=== PATIENT | female | born 1960 | race Caucasian/White ===

== ENCOUNTER 2018-05-26 11:15 | Outpatient (CLI) | payer BC ==
--- NOTE | 2018-05-26 13:49 | RAD ---
SUPINE ABDOMEN: INDICATIONS: Left lower quadrant pain. FINDINGS: There is scattered stool and gas throughout the colon. Scattered small bowel gas appears unremarkabl e. Prominent stool is noted throughout the colon and could represent constipation. No abnormal calc ification. Postoperative change with hardware at the L5-S1 level. IMPRESSION: Prominent stool throughout the colon. POS: C
== END 2018-05-26 11:16 | disposition home or self-care (01) ==
LOC: NAV RAD 11:15
PROVIDERS: ATTEND Family Medicine
DX: R10.32 Left lower quadrant pain (principal)
CPT/HCPCS: 74018

== ENCOUNTER 2022-12-25 10:25 | Outpatient (CLI) | payer BC | END 2022-12-25 10:26 | disposition home or self-care (01) | LOC: NAV RAD 10:25 | PROVIDERS: ATTEND Nurse Practitioner Family | DX: M67.911 Unspecified disorder of synovium and tendon, right shoulder (principal); M19.011 Primary osteoarthritis, right shoulder ==

== ENCOUNTER 2024-01-19 13:43 | Outpatient (CLI) | payer BC | END 2024-01-19 13:44 | disposition home or self-care (01) | LOC: NAV RAD 13:43 | PROVIDERS: ATTEND Family Medicine | DX: M25.512 Pain in left shoulder (principal); M19.012 Primary osteoarthritis, left shoulder ==